=== PATIENT | male | born 1960 | race African-American/Black ===

== ENCOUNTER 2020-04-06 15:14 | Emergency (ER) | payer MEDICAID ==
[~2020-04-06] VITALS: Ht 180.3 cm; Wt 78.0 kg
--- NOTE | 2020-04-06 15:42 | NUR ---
PT TO LOCKED RM, ALL BELONGINGS REMOVED AND PLACED IN LOCKER. AWAITING ERMD EVAL. SITTER IN VIEW OF PT FOR SAFETY
[2020-04-06 16:20] LABS: BASOPHILS % (AUTO) 1 % (0-1); EOSINOPHILS % (AUTO) 5 % (1-7); LYMPHOCYTES % (AUTO) 21 % (22-44); MEAN CORPUSCULAR HEMOGLOBIN 29.7 pg (27.5-34.5); MEAN CORPUSCULAR HGB CONC 32.8 g/dL (33.2-36.2); MEAN PLATELET VOLUME 8.3 fL (7.4-10.4); MONOCYTES % (AUTO) 8 % (2-9); NEUTROPHILS % (AUTO) 64 % (42-75); PLATELET COUNT 564 x10^3/uL (130-400); RED BLOOD COUNT 4.45 x10^6/uL (4.38-5.82); RED CELL DISTRIBUTION WIDTH 15.4 % (9.4-14.8)
[2020-04-06 16:31] LABS: ANION GAP 4 mmol/L (5-15); CALCIUM 8.4 mg/dL (8.5-10.1); CHLORIDE 104 mmol/L (98-107)
[2020-04-06 16:36] LABS: ALKALINE PHOSPHATASE 67 U/L (45-117); BILIRUBIN,TOTAL 0.5 mg/dL (0.2-1.0); CREATININE 1.04 mg/dL (0.7-1.3); TOTAL PROTEIN 7.5 g/dL (6.4-8.2); TROPONIN I < 0.015 ng/mL (0.000-0.045)
[2020-04-06 16:41] LABS: SALICYLATE LEVEL < 1.7 mg/dL (2.8-20.0)
[2020-04-06 16:44] LABS: ALANINE AMINOTRANSFERASE 45 U/L (12-78)
[2020-04-06 17:22] LABS: MD SCAN
--- NOTE | 2020-04-06 17:44 | NUR ---
THROUGHPUT RN: PACKET FAXED TO [facility], [facility]
[2020-04-06] MEDS: PALIPERIDONE 3 MG TAB.ER.24 PO SCH (18:12)
--- NOTE | 2020-04-06 18:19 | NUR ---
THROUGHPUT RN: RB WILL TAKE PT SELF PAY ONLY, PT DECLINED OPTION.
--- NOTE | 2020-04-06 18:31 | NUR ---
PT GIVEN MEAL TRAY, MEDICATED PER MAR, NO OTHER NEEDS AT THIS TIME
--- NOTE | 2020-04-06 18:52 | NUR ---
Zulma report rec'd Robyn SAUER
[2020-04-06 20:12] LABS: MICROSCOPIC NOT IND
[2020-04-06 20:23] LABS: AMPHETAMINE SCREEN, URINE Negative (Negative); BARBITURATE SCREEN, URINE Negative (Negative); BENZODIAZEPINE SCREEN, URINE Negative (Negative); CANNABINOID SCREEN, URINE Positive (Negative); COCAINE SCREEN, URINE Positive (Negative); METHADONE SCREEN, URINE Negative (Negative); OPIATE SCREEN, URINE Negative (Negative)
[2020-04-06] MEDS ORDERED: IBUPROFEN 600 MG TABLET ONE (21:57)
[2020-04-06] MEDS ORDERED: IBUPROFEN 600 MG TABLET PO ONE (22:00)
--- NOTE | 2020-04-06 22:00 | NUR ---
Patient moved to hospital bed, and given food and juice per patient request. Medicated per MAY. Patient steady on feet. Patient VSS. Sitter present.
--- NOTE | 2020-04-07 00:14 | NUR ---
Patient noted to be resting comfortably. Resp easy and unlabored. Sitter at bedside
--- NOTE | 2020-04-07 01:00 | NUR ---
Break RN: Patient resting in hospital bed with eyes closed. Respirations even and unlabored. Room secured, belongings locked in cabinet, sitter outside.
[2020-04-07] MEDS ORDERED: ACETAMINOPHEN 500 MG TABLET ONE ×2 (01:50→18:24)
[2020-04-07] MEDS ORDERED: ACETAMINOPHEN 500 MG TABLET PO ONE (02:00)
--- NOTE | 2020-04-07 03:51 | NUR ---
Patient noted to be resting comfortably. Resp easy and unlabored. Sitter at bedside
--- NOTE | 2020-04-07 04:30 | NUR ---
report from michael loomis
--- NOTE | 2020-04-07 06:12 | NUR ---
pt resting on hospital bed. eyes closed, respirations even and unlabored. sitter at doorway for frequent checks.
--- NOTE | 2020-04-07 07:05 | NUR ---
report to michael martines
--- NOTE | 2020-04-07 07:07 | NUR ---
Bedside report from CAMACHO Meredith. Pt requesting food, breakfast tray ordered.
[2020-04-07] MEDS ORDERED: AMOX1TAB12 PO (08:54)
[2020-04-07] MEDS ORDERED: RISP2TAB80 PO (08:54)
--- NOTE | 2020-04-07 08:54 | NUR ---
Pt states he has PNA, he has an abx prescription that he's supposed to take for "7 days, I've been taking them for 5 already." Provider made aware, med rec done. Awaiting orders. Addendum: 04/07/20 at 0915 by JANI Provider MD Miner.
[2020-04-07] MEDS: PALIPERIDONE 3 MG TAB.ER.24 PO SCH (09:00)
--- NOTE | 2020-04-07 09:01 | NUR ---
Provider also made aware of BP, awaiting orders.
[2020-04-07] MEDS ORDERED: AMOXICILLIN/CLAV 875-125MG TABLET ONE ×2 (09:10→17:26)
[2020-04-07] MEDS: AMOXICILLIN/CLAV 875-125MG TABLET PO SCH ×2 (09:15→17:30)
[2020-04-07] MEDS ORDERED: AMOXICILLIN/CLAV 875-125MG TABLET PO ONE (09:30)
[2020-04-07] MEDS ORDERED: LISINOPRIL 20 MG TABLET PO ONE (09:30)
[2020-04-07] MEDS ORDERED: LISINOPRIL 20 MG TABLET ONE (09:38)
--- NOTE | 2020-04-07 12:58 | NUR ---
Pt sleeping intermittently. Remains in view of the sitter.
--- NOTE | 2020-04-07 14:21 | NUR ---
BREAK RN: PT RESTING IN ROOM. NO ACUTE DISTRESS NOTED. SITTR AT DOOR. WILL CONTINUE TO MONITOR WHILE PRIMARY RN IS ON BREAK.
--- NOTE | 2020-04-07 14:51 | NUR ---
DENIED BY HEALTH SYSTEM DUE TO INSURANCE
[2020-04-07] MEDS ORDERED: IBUPROFEN 200 MG TABLET PO ONE (18:00)
[2020-04-07] MEDS ORDERED: ACETAMINOPHEN 325 MG TABLET PO ONE (18:00)
[2020-04-07] MEDS ORDERED: IBUPROFEN 600 MG TABLET ONE (18:24)
--- NOTE | 2020-04-07 18:58 | NUR ---
Report to CAMACHO Benito. Pt sleeping in view of sitter, visible chest rise and fall.
--- NOTE | 2020-04-07 19:35 | NUR ---
Patient resting quietly on bed with eyes closed, wakes easily, follows commands. Denies SI/HI at this time, no requests at this time, vss, nad, call johnson within reach, patient in direct line of sight of sitter, visible chest rise and fall from [address] way. Will continue to monitor.
--- NOTE | 2020-04-07 23:21 | NUR ---
PATIENT REQUESTING SNACK FOODS, PROVIDED PEANUT BUTTER/JELLY SANDWICH AND JUICE. PATIENT FOLLOWS COMMANDS, NAD, VSS, CALL COHEN WITHIN REACH. WILL CONTINUE TO MONITOR.
--- NOTE | 2020-04-08 04:02 | NUR ---
PATIENT RESTING QUIETLY ON STRETCHER WTH EYES CLOSED, WAKES EASILY, DENIES COMPAINT, VSS, NAD, SITTER AT BEDSIDE, WILL CONTINUE TO MONITOR.
--- NOTE | 2020-04-08 07:08 | NUR ---
REPORT TO KWADWO, CARE TURNED OVER.
[2020-04-08 08:27] VITALS: BP 131/81
[2020-04-08] MEDS: AMOXICILLIN/CLAV 875-125MG TABLET PO SCH (08:32)
[2020-04-08] MEDS: PALIPERIDONE 3 MG TAB.ER.24 PO SCH (08:32)
--- NOTE | 2020-04-08 08:49 | NUR ---
pt provided with meal tray, medicated per order, room secured, sitter monitoring from hallway. pt denies further needs at this time
--- NOTE | 2020-04-08 11:03 | NUR ---
PT TO BE DC WITH RESOURCES PER ANNE QUINN. PT RECEIVED TAXI VOUCHER TO [facility]LL CARE AND BELONGINGS. AWAITING DC PAPERWORK AND LUNCH AT THIS TIME
== END 2020-04-08 11:40 | disposition home or self-care (01) ==
LOC: ED 17:03
DX: F20.0 Paranoid schizophrenia (principal); R00.9 Unspecified abnormalities of heart beat; R07.89 Other chest pain; R45.851 Suicidal ideations
CPT/HCPCS: 36415; 71045; 80053; 80299; 80307; 80320; 80329; 81003; 84484; 85025; 93005; 99285; G0480

== ENCOUNTER 2020-04-19 02:59 | Emergency (ER) | payer MEDICAID ==
[~2020-04-19] VITALS: Ht 185.4 cm; Wt 70.0 kg
[~2020-04-19 02:59] MED LIST: AMOX1TAB12 PO; RISP2TAB80 PO
[2020-04-19 03:11] VITALS: BP 141/110
--- NOTE | 2020-04-19 03:18 | NUR ---
PT REFUSING TO EVEN ADDRESS WHY HE IS HERE, PACING ROOM, PARANOID THINKIKNG. CLENCHED FISTS, SECURITY ON STANDBY. BELONGINGS TO LOCKER
[2020-04-19] MEDS ORDERED: IBUPROFEN 800 MG TABLET PO ONE (03:30)
[2020-04-19] MEDS ORDERED: IBUPROFEN 800 MG TABLET ONE (03:35)
--- NOTE | 2020-04-19 03:46 | NUR ---
Pt refused to have cameron wrap for leg, belongings given back to pt. Security on stand by, pt asked for cab voucher. DAVID chawla, with instruct.
[2020-04-19] MEDS ORDERED: VALPROIC ACID 250 MG CAPSULE PO ONE (04:00)
--- NOTE | 2020-04-19 04:00 | NUR ---
MULTIPLE ATTEMPTS TO CALM AND TREAT PATEINT. EDP WANTS PT DC'D. PT TOOK ORDERED MEDS. PT DC'D TO [facility] WITH TAXI. PT DRESSED AND GIVEN ALL BELONGINGS BACK. PT OUT OF DEPT WITH SECURITY. PT REFUSED DC VITALS.
== END 2020-04-19 04:05 | disposition home or self-care (01) ==
LOC: ED 03:29
DX: M79.672 Pain in left foot (principal); M79.671 Pain in right foot; F11.159 Opioid abuse with opioid-induced psychotic disorder, unspecified; F22 Delusional disorders; Z72.9 Problem related to lifestyle, unspecified; F17.200 Nicotine dependence, unspecified, uncomplicated
CPT/HCPCS: 99283

== ENCOUNTER 2020-05-19 02:49 | Emergency (ER) | payer SELFPAY ==
[~2020-05-19] VITALS: Ht 175.3 cm; Wt 70.0 kg
[2020-05-19 02:59] VITALS: BP 176/101
[2020-05-19] MEDS ORDERED: ZIPRASIDONE 20MG CAPSULE PO STA (02:59)
--- NOTE | 2020-05-19 03:04 | NUR ---
PT BIB EMS AFTER FLAGGING DOWN [facility] AND TELLING THEM HE NEEDED TO GO TO [facility] FOR HELP, NO OTHER COHERENT OR FLUID THOUGHTS FROM PATIENT. APPEARS HYPERACTIVE, UNABLE TO STOP MOVING, RAMBLING AND RUSHED SPEECH NOTED. AGGRESSIVE MOVEMENTS NOTED. PT APPEARS AGGITATED AND IS ABLE TO STATE "I HAVENT SLEPT IN THREE DAYS." PLACED ON SPO2/BP MONITORING, RESTING ON GURNEY, BED IN LOWEST, RAILS ENGAGED. KARLA LUNA AT BS FOR EVAL AND POC.
[2020-05-19] MEDS ORDERED: ZIPRASIDONE 20MG CAPSULE ONE (03:05)
--- NOTE | 2020-05-19 03:52 | NUR ---
pt dc'd verbally by provider and rn, became aggressive verbally and with actions, faking lunging at staff, security assisted pt to dress and exit er. pt more coherent upon dc, nad, denies any additional complaints. no personal belongings left in room after dc.
== END 2020-05-19 03:55 | disposition home or self-care (01) ==
LOC: ED 03:30
DX: F29 Unspecified psychosis not due to a substance or known physiological condition (principal); F22 Delusional disorders; F17.200 Nicotine dependence, unspecified, uncomplicated
CPT/HCPCS: 99284

== ENCOUNTER 2020-05-21 01:15 | Emergency (ER) | payer SELFPAY ==
[~2020-05-21] VITALS: Ht 175.3 cm; Wt 78.0 kg
[2020-05-21 01:18] VITALS: BP 142/89
[2020-05-21] MEDS ORDERED: OLANZAPINE 10 MG TABLET ONE (01:27)
[2020-05-21] MEDS ORDERED: LORazepam 1MG TABLET ONE (01:28)
[2020-05-21] MEDS ORDERED: LORazepam 1MG TABLET PO ONE (01:30)
[2020-05-21] MEDS ORDERED: OLANZAPINE 10 MG TABLET PO SCH (09:00)
== END 2020-05-21 01:48 | disposition home or self-care (01) ==
LOC: ED 01:30 → MERGE 01:30 → ED 01:48
DX: F15.951 Other stimulant use, unspecified with stimulant-induced psychotic disorder with hallucinations (principal); F17.210 Nicotine dependence, cigarettes, uncomplicated; Z72.9 Problem related to lifestyle, unspecified; Z91.14 Patient's other noncompliance with medication regimen
CPT/HCPCS: 99283; 99406

== ENCOUNTER 2020-06-07 05:20 | Emergency (ER) | payer MEDICAID ==
[~2020-06-07] VITALS: Ht 175.3 cm; Wt 74.9 kg
--- NOTE | 2020-06-07 05:45 | NUR ---
Pt to ER with multiple complaints. Pt states having abd pain, foot pain, and wanting a mental health referral. Pt difficulty making sense at times, having strange behaviors, talking about things that do not make sense. Difficulty pin pointing what patient is needing. Pt with anxious behavior. Pt non-threatening at this time. Room free of items. Safety door down. Warm blanket given. Will monitor closely.
--- NOTE | 2020-06-07 06:14 | NUR ---
Labs drawn. Pt calm in bed. Will continue to monitor.
[2020-06-07 06:20] LABS: BASOPHILS % (AUTO) 1 % (0-1); EOSINOPHILS % (AUTO) 4 % (1-7); LYMPHOCYTES % (AUTO) 17 % (22-44); MEAN PLATELET VOLUME 8.1 fL (7.4-10.4); MONOCYTES % (AUTO) 6 % (2-9); NEUTROPHILS % (AUTO) 73 % (42-75); PLATELET COUNT 706 x10^3/uL (130-400); RED CELL DISTRIBUTION WIDTH 15.8 % (9.4-14.8)
[2020-06-07 06:30] LABS: ALANINE AMINOTRANSFERASE 60 U/L (12-78); ALBUMIN 3.6 g/dL (3.4-5.0); ANION GAP 6 mmol/L (5-15); CALCIUM 8.6 mg/dL (8.5-10.1); CHLORIDE 102 mmol/L (98-107)
[2020-06-07 06:33] LABS: ALKALINE PHOSPHATASE 78 U/L (45-117); BILIRUBIN,TOTAL 0.7 mg/dL (0.2-1.0); CREATININE 1.19 mg/dL (0.7-1.3); TOTAL PROTEIN 8.7 g/dL (6.4-8.2)
[2020-06-07 06:39] LABS: MD NO
--- NOTE | 2020-06-07 07:09 | NUR ---
RECEIVED REPORT AND ASSUMED PT. CARE. PT. IS RESTING WITHOUT CONCERNS. VITALS MONITORED. PT.'S HOB IS ELEVATED GREATER THAN 30 DEGRESS. SIDERAILS REMAIN UP X [address] WITH THE CALL LIGHT IN PLACE.
[2020-06-07 07:10] VITALS: BP 138/101
[2020-06-07] MEDS ORDERED: LORazepam 1MG TABLET PO ONE (07:30)
--- NOTE | 2020-06-07 07:55 | NUR ---
THE PT. LEFT AMA.
== END 2020-06-07 07:55 ==
LOC: ED 06:19
DX: G89.29 Other chronic pain (principal); R10.12 Left upper quadrant pain; F14.10 Cocaine abuse, uncomplicated; F15.10 Other stimulant abuse, uncomplicated; I10 Essential (primary) hypertension; F17.200 Nicotine dependence, unspecified, uncomplicated
CPT/HCPCS: 36415; 80053; 83690; 85025; 99283

== ENCOUNTER 2020-06-16 03:25 | Emergency (ER) | payer MEDICAID ==
[~2020-06-16] VITALS: Ht 170.2 cm; Wt 82.0 kg
--- NOTE | 2020-06-16 03:47 | NUR ---
Pt BIBA after being found running out in traffic, being agressive, and not acting right. EMS gave pt 5mg Haldol, and 5mg Versed for agressive behavior. Pt to ER, sedated, arousable only by painful stimuli. Pt with Stable VS, NC in place, 3L to keep sats in high 90's. Pt MOA, calm. On monitor. Provider aware and to bedside. Will continue to monitor.
--- NOTE | 2020-06-16 04:46 | NUR ---
Pt remains sedated, HOB elevated, MOA, non-labored distress. Pt responds to painful stimuli with purpose and moans. Pt O2 turned down to 2L, remains in high 90's. Provider aware. Pt on monitor, will continue to monitor closely. Pt free of harm.
--- NOTE | 2020-06-16 05:58 | NUR ---
Pt calm, no changes, non-labored breathing, VSS. Will monitor.
--- NOTE | 2020-06-16 06:50 | NUR ---
REPORT RECEIVED FROM CAMACHO RENTERIA FOR TRANSFER OF PATIENT CARE.
--- NOTE | 2020-06-16 07:22 | NUR ---
PATIENT SLEEPING IN GURNEY, RESP EVEN AND UNLABORED, VSS, SIDE RAILS UP X2. MTF.
--- NOTE | 2020-06-16 08:47 | NUR ---
PATIENT SLEEPING IN GURNEY, RESP EVEN AND UNLABORED. PATIENT WEANED DOWN FROM 2 LPM NC TO ROOM AIR, O2 SATURATION 97%-98%. OTHER VSS, SIDE RAILS UP X2. MTF.
--- NOTE | 2020-06-16 09:39 | NUR ---
PATIENT AROUSABLE TO VOICE, VSS, ORDERED BREAKFAST TRAY, WILL AMBULATE AFTER PATIENT EATS.
--- NOTE | 2020-06-16 09:47 | NUR ---
PATIENT ABLE TO DRINK WATER WITHOUT DIFFICULTY, PASSED NURSE DYSPHAGIA SCREEN.
--- NOTE | 2020-06-16 09:58 | NUR ---
BREAKFAST TRAY PROVIDED, PATIENT MORE ALERT NOW.
[2020-06-16 10:03] VITALS: BP 142/97
--- NOTE | 2020-06-16 10:03 | NUR ---
PATIENT AMBULATED TO BATHROOM WITH STEADY GAIT.
--- NOTE | 2020-06-16 10:24 | NUR ---
PATIENT GIVEN DISCHARGE PAPERWORK, REFUSED TO TAKE PAPERS, STARTED RAMBLING AND GETTING AGITATED. LEFT ROOM, PATIENT GOT DRESSED AND WALKED TOWARDS DISCHARGE DESK YELLING AND AGITATED, SECURITY ESCORTED PATIENT FROM ED. PATIENT WALKING WITH STEADY GAIT.
== END 2020-06-16 10:25 | disposition home or self-care (01) ==
LOC: ED 05:46
DX: G92 Toxic encephalopathy (principal); F15.150 Other stimulant abuse with stimulant-induced psychotic disorder with delusions; F11.129 Opioid abuse with intoxication, unspecified; F12.129 Cannabis abuse with intoxication, unspecified; Z72.9 Problem related to lifestyle, unspecified; I10 Essential (primary) hypertension
CPT/HCPCS: 99283; 99285

== ENCOUNTER 2020-06-23 11:07 | Emergency (ER) | payer MEDICAID ==
[~2020-06-23] VITALS: Ht 182.9 cm; Wt 71.7 kg
[2020-06-23 11:27] VITALS: BP 137/65
--- NOTE | 2020-06-23 11:42 | NUR ---
Pt BIB EMS who got a call about this pt running in front of cars outside of [employer] in [place], when they asked the pt if he would like to go to the hospital he said "yes". Pt speaked in short slurred phrases that can be difficult to understand. When asked what we could help him with today he responeded that he is having "pain everywhere". Pt aggittated, figgiting, and "itchy". When asked if he used any drugs, pt responded incoherently. When asked if he uses meth his response was "a subsitute". This RN attempted to further clarify what subsitute it was but pt could not further clarify. VSS, room secure, all belongings placed in 2 pt belongs bags and put in locker.
[2020-06-23 11:46] LABS: BASOPHILS % (AUTO) 1 % (0-1); EOSINOPHILS % (AUTO) 4 % (1-7); LYMPHOCYTES % (AUTO) 23 % (22-44); MEAN CORPUSCULAR HEMOGLOBIN 29.3 pg (27.5-34.5); MEAN CORPUSCULAR HGB CONC 32.8 g/dL (33.2-36.2); MEAN PLATELET VOLUME 8.5 fL (7.4-10.4); MONOCYTES % (AUTO) 10 % (2-9); NEUTROPHILS % (AUTO) 62 % (42-75); PLATELET COUNT 513 x10^3/uL (130-400); RED BLOOD COUNT 4.71 x10^6/uL (4.38-5.82); RED CELL DISTRIBUTION WIDTH 15.6 % (9.4-14.8)
[2020-06-23 11:52] LABS: MD NO
--- NOTE | 2020-06-23 11:55 | NUR ---
Sitter at bedside.
[2020-06-23 11:58] LABS: ALANINE AMINOTRANSFERASE 52 U/L (12-78); ALBUMIN 3.6 g/dL (3.4-5.0); ANION GAP 9 mmol/L (5-15); CALCIUM 9.1 mg/dL (8.5-10.1); CHLORIDE 104 mmol/L (98-107)
[2020-06-23 12:00] LABS: ALKALINE PHOSPHATASE 70 U/L (45-117); BILIRUBIN,TOTAL 0.7 mg/dL (0.2-1.0); CREATINE KINASE, TOTAL 242 U/L (39-308); TOTAL PROTEIN 7.9 g/dL (6.4-8.2)
--- NOTE | 2020-06-23 12:30 | NUR ---
pt provided meal tray with SI precautions
--- NOTE | 2020-06-23 13:30 | NUR ---
Pt resting in bed with eyes closed
[2020-06-23 13:59] LABS: AMPHETAMINE SCREEN, URINE Positive (Negative); BARBITURATE SCREEN, URINE Negative (Negative); BENZODIAZEPINE SCREEN, URINE Negative (Negative); CANNABINOID SCREEN, URINE Positive (Negative); COCAINE SCREEN, URINE Negative (Negative); METHADONE SCREEN, URINE Negative (Negative); OPIATE SCREEN, URINE Negative (Negative)
--- NOTE | 2020-06-23 14:30 | NUR ---
Pt resting in bed with eyes closed
--- NOTE | 2020-06-23 15:15 | NUR ---
Pt lying in bed talking to himself
--- NOTE | 2020-06-23 16:43 | NUR ---
Pt resting in bed, ithy and fidgity
--- NOTE | 2020-06-23 17:23 | NUR ---
Pt ambulatory w/ steady gait to bathroom
--- NOTE | 2020-06-23 17:26 | NUR ---
Pt provided meal tray. Pt sitting up eating. Pt provided all belongings and instructed to get dressed. Pt provided dc paperwork.
--- NOTE | 2020-06-23 17:55 | NUR ---
Pt ate all of meal tray. Pt able to dress self fully and ambulate with steady gait. Pt agitated, yelling at staff, threatening staff. Security contacted. Security escorted pt off property.
== END 2020-06-23 18:00 | disposition home or self-care (01) ==
LOC: EDBD → MERGE 11:07 → ED 12:00
DX: F15.129 Other stimulant abuse with intoxication, unspecified (principal); N28.9 Disorder of kidney and ureter, unspecified; D69.6 Thrombocytopenia, unspecified; R45.1 Restlessness and agitation; I44.30 Unspecified atrioventricular block
CPT/HCPCS: 36415; 80053; 80307; 80320; 82550; 85025; 93005; 99284; G0480

== ENCOUNTER 2020-07-04 22:15 | Emergency (ER) | payer MEDICAID ==
[~2020-07-04] VITALS: Ht 180.3 cm; Wt 72.1 kg
[2020-07-04 22:27] VITALS: BP 204/127
[2020-07-04] MEDS ORDERED: IBUPROFEN 800 MG TABLET ONE (22:53)
[2020-07-04] MEDS ORDERED: ACETAMINOPHEN 500 MG TABLET ONE (22:53)
[2020-07-04] MEDS ORDERED: ACETAMINOPHEN 500 MG TABLET PO ONE (23:00)
[2020-07-04] MEDS ORDERED: IBUPROFEN 800 MG TABLET PO ONE (23:00)
--- NOTE | 2020-07-04 23:02 | NUR ---
PT YELLING AT THIS RN "I AM NOT LEAVING", PT REFUSING TO LEAVE ROOM AFTER BEING GIVEN DISCHARGE INSTRUCTIONS, SECURITY AT BEDSIDE TO HELP ESCORT PT OUT.
== END 2020-07-04 23:11 | disposition home or self-care (01) ==
LOC: ED 22:40
DX: K02.9 Dental caries, unspecified (principal); B35.3 Tinea pedis; F17.210 Nicotine dependence, cigarettes, uncomplicated; I10 Essential (primary) hypertension
CPT/HCPCS: 99283

== ENCOUNTER 2020-07-07 04:06 | Emergency (ER) | payer MEDICAID ==
[~2020-07-07] VITALS: Ht 177.8 cm; Wt 72.0 kg
[2020-07-07 04:13] VITALS: BP 118/56
--- NOTE | 2020-07-07 04:20 | NUR ---
PT BIB [facility] TO ROOM 2. PT WITH UNCONTROLLABLE MOVEMENTS AND PACING IN ROOM, AND WORD SALAD AND UNABLE TO GATHER HIS THOUGHTS. PT HAS BLEEDING ON HIS UPPER LIPS AND NOT CONTINUOUS. PT HAS SMALL SKIN TEAR TO FOREHEAD, WITH NO BLEEDING OR BRUISING. UNABLE TO FULLY ASSES PT DUE TO HIS INABILITY TO CALM DOWN. AWARE.
--- NOTE | 2020-07-07 04:39 | NUR ---
PT SEEN EXPOSING HIS PENIS AT THE WINDOW AND RUBBING IT PEOPLE ARE WALKING BY. PT TOLD TO STOP THAT AND PULL UP HIS PANTS HE'S EXPOSING HIS GENITALS TO THE PUBLIC. PT IN A HYPERACTIVE STATE AND INCOMPREHENSIBLE SOUNDS, BUT PULLED HIS PANTS UP AND IS PACING IN THE ROOM. SECURITY TO BEDSIDE TO EVAL SITUATION AND UPDATED TO SITUATION AND IF PT CONTINUES TO EXPOSE HIMSELF TO STAFF AND VISITORS, HE WILL BE ASKED TO LEAVE. NURSING HOME PHYSICIAN AND INVENTORY MANAGER ADVISED AND MD AWARE.
--- NOTE | 2020-07-07 04:50 | NUR ---
PT SAT DOWN, AND PA TO BEDSIDE TO EVAL PT. PT DIFFICULT TO ASSESS AND NOT EASILY CALMED. PT CONTINUES WITH WORD SALAD AND NO COMPREHENSIBLE THOUGHT.
--- NOTE | 2020-07-07 05:10 | NUR ---
PTS ABRASION CLEANSED AND HIS BLOODY NOSE, NON BLEEDING, WAS CLEANED OF OLD BLOOD. PT STILL BELIGERANT AND D/C INSTRUCTIONS ATTEMPTED FOR PT. PT THEN JUMPING IN BED AFTER DC PAPERS PRESENTED AND SECURITY CALLED TO ROOM, TO ESCORT PT PEACEABLY OUT THE FRONT. NO BLEEDING FROM ANY WOUNDS, SMALL ABRASION TO HEAD HAS NO BLEEDING.
== END 2020-07-07 05:15 | disposition home or self-care (01) ==
LOC: ED 05:00
DX: S00.01XA Abrasion of scalp, initial encounter (principal); F15.159 Other stimulant abuse with stimulant-induced psychotic disorder, unspecified; X58.XXXA Exposure to other specified factors, initial encounter; Y93.89 Activity, other specified; Y92.89 Other specified places as the place of occurrence of the external cause; Y99.8 Other external cause status
CPT/HCPCS: 99283

== ENCOUNTER 2020-08-27 15:56 | Inpatient (IN) | payer MEDICAID ==
[~2020-08-27] VITALS: Ht 185.4 cm; Wt 74.8 kg
--- NOTE | 2020-08-27 16:38 | NUR ---
PT LAYING BACK IN BED, FIDDLING WITH SPO2 CORD, TALKING TO HIMSELF. NAD NOTED AT THIS TIME RESPIRATIONS EVEN AND UNLABORED ON NC. SIDE RAILS UP, CALL LIGHT IN REACH. AWAITING ORDERS.
[2020-08-27] MEDS ORDERED: LORazepam 1MG TABLET PO ONE (17:00)
[2020-08-27 17:11] LABS: MEAN CORPUSCULAR HEMOGLOBIN 30.9 pg (27.5-34.5); MEAN PLATELET VOLUME 8.6 fL (7.4-10.4); PLATELET COUNT 609 x10^3/uL (130-400); RED BLOOD COUNT 5.76 x10^6/uL (4.38-5.82)
[2020-08-27] MEDS ORDERED: LORazepam 1MG TABLET ONE (17:20)
[2020-08-27 17:22] LABS: ALANINE AMINOTRANSFERASE 69 U/L (12-78); ALBUMIN 5.5 g/dL (3.4-5.0); ANION GAP 11 mmol/L (5-15); CALCIUM 10.8 mg/dL (8.5-10.1); CHLORIDE 101 mmol/L (98-107)
[2020-08-27 17:25] LABS: ALKALINE PHOSPHATASE 97 U/L (45-117); BILIRUBIN,TOTAL 1.6 mg/dL (0.2-1.0); CREATININE 3.29 mg/dL (0.7-1.3); TOTAL PROTEIN 11.6 g/dL (6.4-8.2)
--- NOTE | 2020-08-27 17:32 | NUR ---
PT AWAKE, TALKING TO SELF, REMAINS IN BED. PULLS OFF ALL MONITORING, CHEWING ON CORDS. PT REORIENTED AND EDUCATED ON NEED TO LEAVE BP, SPO2 AND MOTOR VEHICLE ASSEMBLER IN PLACE.
[2020-08-27] MEDS ORDERED: ZIPRASIDONE 20 MG INJ IM ONE ×2 (17:52→18:00)
[2020-08-27] MEDS ORDERED: SODIUM CHLORIDE 0.9% 1,000ML IVBOLUS ONE (18:00)
[2020-08-27] MEDS ORDERED: SODIUM CHLORIDE FLUSH 10ML SYR IVF ONE (18:00)
[2020-08-27] MEDS ORDERED: SODIUM CHLORIDE 0.9% 1,000 ML IV ONE ×2 (18:00→18:30)
[2020-08-27 18:02] LABS: MD YES
[2020-08-27 18:05] LABS: BAND#(MANUAL) 3.16 x10^3/uL; BANDS%(MANUAL) 17 % (0-7); EOS#(MANUAL) 0.19 x10^3/uL (0.0-0.4); EOS% (MANUAL) 1 % (1-7); LYMPH#(MANUAL) 0.93 x10^3/uL (1-3.4); LYMPHS% (MANUAL) 5 % (22-44); MONOS#(MANUAL) 0.74 x10^3/uL (0.3-2.7); MONOS% (MANUAL) 4 % (2-9); SEG#(MANUAL) 13.58 x10^3/uL (1.8-6.8); SEGS% (MANUAL) 73 % (42-75)
[2020-08-27 18:06] LABS: <PLATELET ESTIMATE> INCREASED; <PLT MORPHOLOGY> NORMAL PLT MORPH; <RBC MORPHOLOGY> NORMAL
[2020-08-27] MEDS ORDERED: SODIUM CHLORIDE FLUSH 10ML SYR IVF PRN (18:30)
[2020-08-27] MEDS ORDERED: CEFTRIAXONE 1,000 MG in DEXTROSE 5% 50 ML IVPB ONE (18:30)
[2020-08-27] MEDS ORDERED: AZITHROMYCIN 500 MG in SODIUM CHLORIDE 0.9% 250 ML IVPB ONE (18:30)
--- NOTE | 2020-08-27 18:40 | NUR ---
AFTER MULTIPLE ATTEMPTS FOR IV, IV ESTABLISHED, IVF INFUSING. PER VERBALIZES UNDERSTANDING TO LEAVE IV ALONE. CURRENTLY LEAVING MONITORING ALONE. PT WILL NOT KEEP CUPOLA PATCHER IN PLACE. PT AWARE OF NEED FOR UA.
[2020-08-27] MEDS ORDERED: LIDODERM 5% PATCH TD PRN (19:30)
[2020-08-27] MEDS ORDERED: DOCUSATE 100 MG CAPSULE PO PRN (19:30)
[2020-08-27] MEDS ORDERED: MELATONIN 5 MG TABLET PO PRN (19:30)
[2020-08-27] MEDS ORDERED: LORazepam 1MG TABLET PO PRN (19:30)
[2020-08-27] MEDS ORDERED: GUAIFENESIN/DM 200-20MG, 10ML UDC PO PRN (19:30)
[2020-08-27] MEDS ORDERED: ENALAPRILAT 1.25 MG/ML, 2ML IVPush PRN (19:30)
--- NOTE | 2020-08-27 19:45 | NUR ---
PT REMAINS RESTING WITH EYES CLOSED. NAD NOTED AT THIS TIME. IVF INFUSING WELL. IV PULLED AT AND COMING OFF, PT REORIENTED AND ENCOURAGED NOT TO PULL ON IV. IV CATHETER RE ALIGNED AND TAPED DOWN AGAIN. SIDE RAILS UP, CALL LIGHT IN REACH.
--- NOTE | 2020-08-27 20:02 | NUR ---
FIRST ATTEMPT TO CALL REPORT.
--- NOTE | 2020-08-27 20:11 | NUR ---
SECOND CALL FOR REPORT.
[2020-08-27] MEDS: SODIUM CHLORIDE 0.9% 1,000 ML IV SCH (21:15)
[2020-08-27 21:24] VITALS: BP 103/74
[2020-08-27] MEDS ORDERED: HALOPERIDOL 5 MG/ML IM PRN (23:00)
[2020-08-28] MEDS: HEPARIN 5,000 UNITS/ML, 1ML SQ SCH ×4 (00:03→16:54)
[2020-08-28 01:01] VITALS: BP 98/65
[2020-08-28] MEDS: SODIUM CHLORIDE 0.9% 1,000 ML IV SCH ×3 (01:54→21:15)
[2020-08-28] MEDS: PIPERACILLIN/TAZO 3.375 GM in DEXTROSE 5% 50 ML IVPB SCH ×3 (05:30→16:54)
[2020-08-28 06:35] VITALS: BP 106/75
[2020-08-28 11:28] VITALS: BP 107/72
[2020-08-28] MEDS: RISPERIDONE 2 MG TABLET PO SCH (12:21)
[2020-08-28 12:56] LABS: BASOPHILS % (AUTO) 1 % (0-1); EOSINOPHILS % (AUTO) 3 % (1-7); LYMPHOCYTES % (AUTO) 10 % (22-44); MEAN CORPUSCULAR HEMOGLOBIN 30.7 pg (27.5-34.5); MEAN CORPUSCULAR HGB CONC 33.2 g/dL (33.2-36.2); MEAN PLATELET VOLUME 8.8 fL (7.4-10.4); MONOCYTES % (AUTO) 10 % (2-9); NEUTROPHILS % (AUTO) 77 % (42-75); PLATELET COUNT 398 x10^3/uL (130-400); RED BLOOD COUNT 4.83 x10^6/uL (4.38-5.82); RED CELL DISTRIBUTION WIDTH 14.8 % (9.4-14.8)
[2020-08-28 12:57] LABS: MD NO
[2020-08-28 13:11] LABS: ANION GAP 8 mmol/L (5-15); CALCIUM 8.3 mg/dL (8.5-10.1); CHLORIDE 101 mmol/L (98-107); CREATININE 2.03 mg/dL (0.7-1.3)
[2020-08-28 13:13] LABS: CREATINE KINASE, TOTAL 577 U/L (39-308)
[2020-08-28] MEDS: ACETAMINOPHEN 325 MG TABLET PO PRN (17:48)
[2020-08-28] MEDS ORDERED: CEFTRIAXONE 1,000 MG in DEXTROSE 5% 50 ML IVPB SCH (18:30)
[2020-08-28] MEDS ORDERED: AZITHROMYCIN 500 MG in SODIUM CHLORIDE 0.9% 250 ML IV SCH (18:30)
[2020-08-28 19:59] VITALS: BP 112/63
[2020-08-29] MEDS: PIPERACILLIN/TAZO 3.375 GM in DEXTROSE 5% 50 ML IVPB SCH ×4 (00:11→17:34)
[2020-08-29] MEDS: HEPARIN 5,000 UNITS/ML, 1ML SQ SCH ×4 (00:11→16:53)
[2020-08-29] MEDS: ACETAMINOPHEN 325 MG TABLET PO PRN (00:13)
[2020-08-29 01:05] VITALS: BP 132/79
[2020-08-29 05:15] LABS: BASOPHILS % (AUTO) 1 % (0-1); EOSINOPHILS % (AUTO) 4 % (1-7); LYMPHOCYTES % (AUTO) 14 % (22-44); MEAN CORPUSCULAR HEMOGLOBIN 30.9 pg (27.5-34.5); MEAN CORPUSCULAR HGB CONC 34.2 g/dL (33.2-36.2); MEAN PLATELET VOLUME 8.9 fL (7.4-10.4); MONOCYTES % (AUTO) 14 % (2-9); NEUTROPHILS % (AUTO) 67 % (42-75); PLATELET COUNT 380 x10^3/uL (130-400); RED BLOOD COUNT 4.23 x10^6/uL (4.38-5.82); RED CELL DISTRIBUTION WIDTH 14.8 % (9.4-14.8)
[2020-08-29] MEDS: SODIUM CHLORIDE 0.9% 1,000 ML IV SCH ×2 (05:15→13:15)
[2020-08-29 05:23] LABS: CHLORIDE 107 mmol/L (98-107)
[2020-08-29 05:30] LABS: ALANINE AMINOTRANSFERASE 34 U/L (12-78); ALBUMIN 2.9 g/dL (3.4-5.0); ALKALINE PHOSPHATASE 50 U/L (45-117); ANION GAP 5 mmol/L (5-15); BILIRUBIN,TOTAL 0.7 mg/dL (0.2-1.0); CALCIUM 7.9 mg/dL (8.5-10.1); TOTAL PROTEIN 7.1 g/dL (6.4-8.2)
[2020-08-29 05:38] LABS: MD NO
[2020-08-29 06:42] VITALS: BP 134/78
[2020-08-29] MEDS: RISPERIDONE 2 MG TABLET PO SCH (08:56)
[2020-08-29 11:34] VITALS: BP 121/76
[2020-08-29] MEDS ORDERED: OMNIPAQUE 350 MG/ML, 150 ML BOTTLE ONE (14:35)
[2020-08-29 19:27] VITALS: BP 125/71
[2020-08-30] MEDS: HEPARIN 5,000 UNITS/ML, 1ML SQ SCH ×2 (00:17→08:00)
[2020-08-30 00:18] VITALS: BP 142/94
[2020-08-30] MEDS: PIPERACILLIN/TAZO 3.375 GM in DEXTROSE 5% 50 ML IVPB SCH ×2 (00:18→05:21)
[2020-08-30 00:51] LABS: AMPHETAMINE SCREEN, URINE Positive (Negative); BARBITURATE SCREEN, URINE Negative (Negative); BENZODIAZEPINE SCREEN, URINE Negative (Negative); CANNABINOID SCREEN, URINE Negative (Negative); COCAINE SCREEN, URINE Negative (Negative); METHADONE SCREEN, URINE Negative (Negative); OPIATE SCREEN, URINE Negative (Negative)
[2020-08-30] MEDS: ACETAMINOPHEN 325 MG TABLET PO PRN (03:42)
[2020-08-30 06:53] VITALS: BP 136/76
[2020-08-30] MEDS ORDERED: AMOX1TAB64 PO (07:23)
[2020-08-30] MEDS: RISPERIDONE 2 MG TABLET PO SCH (10:11)
== END 2020-08-30 11:42 | disposition home or self-care (01) | DRG 720 ==
LOC: ED 16:09 → EDIP 18:29 → 4WST 20:27 → DCLOUNGE 08-30 11:37
PROVIDERS: ADMIT Emergency Medicine; ATTEND Family Medicine
DX: A41.9 Sepsis, unspecified organism (principal); G92 Toxic encephalopathy; N17.9 Acute kidney failure, unspecified; J15.9 Unspecified bacterial pneumonia; M62.82 Rhabdomyolysis; N28.1 Cyst of kidney, acquired; C64.9 Malignant neoplasm of unspecified kidney, except renal pelvis; F20.9 Schizophrenia, unspecified; F15.129 Other stimulant abuse with intoxication, unspecified; F17.200 Nicotine dependence, unspecified, uncomplicated; I10 Essential (primary) hypertension; Z63.8 Other specified problems related to primary support group
CPT/HCPCS: 36415; 71045; 74178; 76770; 80048; 80053; 80307; 80320; 82306; 82550; 83605; 83735; 83970; 85025; 87040; 93005; 96372; 96374; G0378; J0456; J0696; J1644; J2543; J3486; Q9967; G0480; J1630; J7030; J7050

== ENCOUNTER 2020-10-01 02:24 | Emergency (ER) | payer MEDICAID ==
[~2020-10-01] VITALS: Ht 182.9 cm; Wt 73.3 kg
[~2020-10-01 02:24] MED LIST changes: +AMOX1TAB64 PO
[2020-10-01 02:27] VITALS: BP 128/86
--- NOTE | 2020-10-01 03:00 | NUR ---
PT ESCORTED OUT BY SECURITY
== END 2020-10-01 03:06 | disposition left against medical advice (07) ==
LOC: ED 03:00
DX: F15.10 Other stimulant abuse, uncomplicated (principal)
CPT/HCPCS: 99281

== ENCOUNTER 2020-11-05 21:34 | Emergency (ER) | payer MEDICAID ==
[~2020-11-05] VITALS: Ht 182.9 cm; Wt 80.0 kg
[2020-11-05 21:41] VITALS: BP 129/77
--- NOTE | 2020-11-05 21:46 | NUR ---
pt tracey HAWKINS from the residential. according to EMS pt was kicked out of the residential today. pt stated he had ankle pain from standing for 15 day straight. when EMS arrived at [facility], pt started demanding that he be admitted. pt laying on guranastasiya, yelling at the RN about how she was speaking words in his head during assessment. This RN would ask simple questions about pt's pain, and pt would start going off about Miley Velasco and the President trying to kill people. ERP at bedside now.
--- NOTE | 2020-11-05 22:02 | NUR ---
pt given d/c instructions. pt given a pair of sock per request. pt escorted out by security and is able to ambulate steadily. denies any questions about d/c instructions
== END 2020-11-05 22:06 | disposition home or self-care (01) ==
LOC: ED 21:45
DX: F15.150 Other stimulant abuse with stimulant-induced psychotic disorder with delusions (principal); F15.129 Other stimulant abuse with intoxication, unspecified; Z72.9 Problem related to lifestyle, unspecified; I10 Essential (primary) hypertension
CPT/HCPCS: 99283